=== PATIENT | female | born 2000 | race African-American/Black ===

== ENCOUNTER 2020-09-15 08:15 | Inpatient (IN) | payer OTHER ==
[2020-09-15 09:56] LABS: BASO % 0.2 % (0-2.0); EOS % 0.5 % (0-4.5); HEMATOCRIT 31.1 % (32.4-45.2); HEMOGLOBIN 9.9 GM/dL (10.7-15.3); INR 1.04 (0.83-1.09); LYMPH % 37.9 % (8-40); MCH 21.5 pg (25.7-33.7); MCHC 31.7 g/dl (32.0-36.0); MEAN CELL VOLUME 67.8 fl (80-96); MEAN PLT VOLUME 8.4 fl (7.5-11.1); MONO % 8.6 % (3.8-10.2); NEUT % 52.8 % (42.8-82.8); PLATELET COUNT 205 K/MM3 (134-434); PROTHROMBIN TIME (PATIENT) 12.6 SEC (9.7-13.0); RBC 4.59 M/mm3 (3.60-5.2); RDW 21.6 % (11.6-15.6); WHITE BLOOD COUNT 3.3 K/mm3 (4.0-10.0)
[2020-09-15 09:58] LABS: CALCIUM 9.4 mg/dL (8.5-10.1)
[2020-09-15 09:59] LABS: ACTIVATED PTT 25.3 SECONDS (25.2-36.5); BLOOD UREA NITROGEN 7.8 mg/dL (7-18)
[2020-09-15 10:02] LABS: CREATININE 0.7 mg/dL (0.55-1.3)
[2020-09-15 11:46] LABS: HIV INTERPRETATION NEGATIVE (NEGATIVE)
[2020-09-15 11:58] VITALS: BMI 27.1
[2020-09-15 12:43] LABS: ANISOCYTOSIS 2+; MACROCYTOSIS 0; OVALOCYTE 1+; PLATELET ESTIMATE NORMAL; TEAR DROP CELLS 1+
[2020-09-15] MEDS ORDERED: DINOPROSTONE 10 MG VAGINAL SUPPOSITORY VG ONE (12:45)
[2020-09-15] MEDS: INSULIN SLIDING SCALE (NOVOLOG) 1 VIAL SQ SCH ×2 (16:57→22:00)
[2020-09-15] MEDS: ELECTROLYTE-148 SOLN 1,000 ML IV SCH ×2 (17:20→22:20)
[2020-09-16] MEDS ORDERED: AMPICILLIN SODIUM 2 GM VIAL ONE (00:19)
[2020-09-16] MEDS ORDERED: AMPICILLIN - 2 GM in SODIUM CHLORIDE 100 ML IVPB ONE (00:30)
[2020-09-16] MEDS ORDERED: PROMETHAZINE HCL 25 MG/1 ML VIAL IVPUSH ONE (00:54)
[2020-09-16] MEDS ORDERED: BUTORPHANOL TARTRATE 1 MG/ML VIAL IVPUSH ONE (00:54)
[2020-09-16] MEDS ORDERED: PROMETHAZINE HCL 25 MG/1 ML VIAL ONE (01:37)
[2020-09-16] MEDS ORDERED: BUTORPHANOL TARTRATE 2 MG/ML VIAL ONE (01:37)
[2020-09-16] MEDS ORDERED: OXYTOCIN 30 UNITS in 0.9% NS 30 UNIT/500 ML INFUS.BAG IVPB SCH (02:00)
[2020-09-16] MEDS ORDERED: OXYTOCIN 30 UNITS in 0.9% NS 30 UNIT/500 ML INFUS.BAG IVPB ONE (02:18)
[2020-09-16] MEDS ORDERED: AMPICILLIN SODIUM 1 GM VIAL ONE ×5 (04:24→21:17)
[2020-09-16] MEDS: AMPICILLIN - 1 GM in SODIUM CHLORIDE 100 ML IVPB SCH ×5 (04:30→20:40)
[2020-09-16] MEDS: INSULIN SLIDING SCALE (NOVOLOG) 1 VIAL SQ SCH ×3 (07:28→18:21)
[2020-09-16] MEDS ORDERED: BUTORPHANOL TARTRATE 1 MG/ML VIAL IVPB ONE ×2 (09:20→18:20)
[2020-09-16] MEDS ORDERED: BUTORPHANOL TARTRATE 1 MG/ML VIAL ONE ×2 (09:24→18:08)
[2020-09-16] MEDS: ELECTROLYTE-148 SOLN 1,000 ML IV SCH (11:15)
[2020-09-16] MEDS: MISOPROSTOL 100 MCG TABLET PO SCH ×2 (13:40→18:10)
[2020-09-16] MEDS ORDERED: PCA PUMP NR ONE (19:42)
[2020-09-16] MEDS ORDERED: FENTANYL/BUPIVACAINE/NS/PF - PCEA - 50 ML DISP.SYRIN EP ONE (19:42)
[2020-09-16] MEDS ORDERED: BUPIVACAINE HCL/PF 0.25% (2.5MG/ML) 10 ML VIAL ONE (19:49)
[2020-09-16] MEDS ORDERED: NALOXONE HCL 0.4 MG/ML VIAL IVPUSH PRN (20:18)
[2020-09-16] MEDS ORDERED: FENTANYL/BUPIVACAINE/NS/PF - PCEA - 50 ML DISP.SYRIN EP SCH (20:30)
[2020-09-16] MEDS ORDERED: OXYTOCIN 20 UNITS in 0.9% NS 20 UNIT/1,000 ML INFUS.BAG IV ONE (22:47)
[2020-09-17] MEDS ORDERED: BENZOCAINE 28 GM HEMORRHOIDAL OINTMENT TP PRN
[2020-09-17] MEDS ORDERED: METHYLERGONOVINE MALEATE 0.2 MG/1 ML AMP IM PRN
[2020-09-17] MEDS ORDERED: BENZOCAINE 20% 57 GM BOTTLE TP PRN
[2020-09-17] MEDS ORDERED: BISACODYL 10 MG SUPP.RECT RC PRN
[2020-09-17] MEDS ORDERED: WITCH HAZEL 50% (TUCKS) 40 PAD/JAR PAD TP PRN
[2020-09-17] MEDS ORDERED: OXYTOCIN 20 UNITS in 0.9% NS 20 UNIT/1,000 ML INFUS.BAG IV SCH
[2020-09-17] MEDS: INSULIN SLIDING SCALE (NOVOLOG) 1 VIAL SQ SCH (07:10)
[2020-09-17] MEDS: FERROUS SO4 325 MG TABLET (FP) PO SCH ×3 (09:32→17:52)
[2020-09-17] MEDS: ACETAMINOPHEN 325 MG TABLET (FP) PO PRN ×2 (09:33→21:40)
[2020-09-17] MEDS: IBUPROFEN 600 MG TABLET (FP) PO PRN ×2 (09:33→21:40)
[2020-09-17] MEDS: PRENATAL VITAMINS W/ FOLIC ACID TABLET (FP) PO SCH (09:33)
[2020-09-17 22:09] VITALS: PULSE 116
[2020-09-18 07:48] LABS: BASO % 0.1 % (0-2.0); HEMATOCRIT 27.6 % (32.4-45.2); LYMPH % 25.7 % (8-40); MCHC 32.6 g/dl (32.0-36.0); MEAN CELL VOLUME 67.4 fl (80-96); MEAN PLT VOLUME 8.2 fl (7.5-11.1); MONO % 8.9 % (3.8-10.2); NEUT % 64.3 % (42.8-82.8); PLATELET COUNT 209 K/MM3 (134-434); RBC 4.09 M/mm3 (3.60-5.2); RDW 21.9 % (11.6-15.6); WHITE BLOOD COUNT 7.4 K/mm3 (4.0-10.0)
[2020-09-18 09:12] LABS: POC NITRAZINE POS
[2020-09-18] MEDS: FERROUS SO4 325 MG TABLET (FP) PO SCH (10:26)
[2020-09-18] MEDS: PRENATAL VITAMINS W/ FOLIC ACID TABLET (FP) PO SCH (10:26)
[2020-09-18 11:54] VITALS: BP 115/72; TEMP 97.8
[2020-09-18] MEDS ORDERED: SENNOSIDES/DOCUSATE COMBO (SENNA PLUS) TABLET (UD) PO PRN (22:00)
== END 2020-09-18 12:20 | disposition home or self-care (01) | DRG 560 ==
LOC: JLDR 08:15 → J3W 09-17 01:16
PROVIDERS: ADMIT Obstetrics & Gynecology; ATTEND Obstetrics & Gynecology
PROC: 3E0P7VZ Introduction of Hormone into Female Reproductive, Via Natural or Artificial Opening (ICD-10-PCS; 2020-09-15)
PROC: 0W8NXZZ Division of Female Perineum, External Approach (ICD-10-PCS; principal; 2020-09-16)
PROC: 10E0XZZ Delivery of Products of Conception, External Approach (ICD-10-PCS; 2020-09-16)
PROC: 0HQ9XZZ Repair Perineum Skin, External Approach (ICD-10-PCS; 2020-09-16)
PROC: 3E033VJ Introduction of Other Hormone into Peripheral Vein, Percutaneous Approach (ICD-10-PCS; 2020-09-16)
DX: O24.414 Gestational diabetes mellitus in pregnancy, insulin controlled (principal); O70.0 First degree perineal laceration during delivery; D57.3 Sickle-cell trait; Z86.16 Personal history of COVID-19; Z3A.39 39 weeks gestation of pregnancy; Z37.0 Single live birth
CPT/HCPCS: 36415; 59409; 80048; 82947; 82962; 83986-QW; 85025; 85610; 85730; 86780; 86850; 86900; 86901; 87389; 88307-TC; C9803; U0003; U0005